=== PATIENT | male | born 1950 | race Caucasian/White ===

== ENCOUNTER 2018-07-24 06:58 | Day surgery (SDC) | payer MEDICARE, MEDICAID ==
--- NOTE | 2018-07-20 14:27 | HP ---
PREOPERATIVE HISTORY AND PHYSICAL: DATE OF ADMISSION/SURGERY: 07/24/18 [facility] DATE OF OFFICE VISIT/ENCOUNTER: 07/15/18 ATTENDING SURGEON: Ritika Garcia MD * (DICTATED BY MAIKOL JORGENSEN) PROCEDURE: Left ring trigger finger release. HISTORY OF PRESENT ILLNESS: This is a 67-year-old male, who has had trigger fingers on both hands bothering him since around the fall of 2017. The left ring finger is the worst. He has had cortisone injections in the past that have been helpful in relieving his symptoms, but the symptoms have returned. He is now interested in pursuing surgical intervention for his left ring trigger finger. PAST MEDICAL HISTORY: 1. GERD. 2. History of heart murmur. PAST SURGICAL HISTORY: 1. Right knee arthroscopy. 2. Lumbar diskectomy. 3. Right hand Dupuytren's excision. MEDICATIONS: 1. Finasteride 1 tab daily. 2. Metronidazole 0.75%, apply to face 3 times a day. 3. Ranitidine. 4. Gaviscon. 5. Viagra 100 mg, 0.5 or 1 tab p.r.n. ALLERGIES: PENICILLIN and CLINDAMYCIN cause an upset stomach. He is also allergic to bee stings. FAMILY MEDICAL HISTORY: Tuberculosis, congestive heart failure, melanoma. 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 He denies tobacco use, recreational drug use, and does not drink alcohol. REVIEW OF SYSTEMS: Negative for general, cephalic, cardiovascular, respiratory , GI, , other musculoskeletal, integumentary, endocrine, neurologic, and hematologic symptoms. Infectious Disease: Negative for MRSA, hepatitis C, HIV. PHYSICAL EXAMINATION GENERAL: A well-developed, well-nourished 67-year-old male, in no acute distress. VITAL SIGNS: Height 5 feet 7-1/2 inches, weight 191 pounds. Pulse rate 80, blood pressure 124/82. HEENT: Normocephalic, atraumatic. Pupils are equal, round, and reactive to light and accommodation. Extraocular movements are intact. Throat is clear. NECK: Supple. No palpable lymph nodes. PULMONARY: Lungs are clear to auscultation bilaterally. No wheezes, rales, or rhonchi. CARDIOVASCULAR: Regular rate and rhythm. S1, S2. Murmur detected on auscultation. No rubs or gallops. No edema. ABDOMEN: Positive bowel sounds. Soft, nontender. NEUROLOGICAL: Alert and oriented x3. Cranial nerves II through XII are intact. Sensation is intact to light touch. MUSCULOSKELETAL: On exam of his left hand, he has tenderness to palpation at the A1 robert of the ring finger. When he tries to make a fist, he cannot squeeze that finger tightly. He has good extension of the finger. Skin is intact. Neurovascular function is intact. DIAGNOSTIC STUDIES/LAB DATA: X-rays, AP, lateral, and oblique of his hand show minimal degenerative changes. IMPRESSION: Left ring finger trigger finger. PLAN: The patient is scheduled to undergo a left ring trigger finger release with Dr. Garcia on 07/24/18. He will return to the office 10 days postop for followup and suture removal. A prescription of Ultracet was e-scribed to the patient's pharmacy for postoperative pain management. MAIKOL JORGENSEN [id number]/[facility] #: [id number] BEN
[~2018-07-24 06:58] MED LIST: Buffered Lidocaine 1% SYRIN* 1 ML/SYRINGE INTRADERM ONE; Lactated Ringers 1000 ML Bag* 1,000 ML IV SCH
[2018-07-24] MEDS ORDERED: Lidocaine 1% INJ* 10 MG/ML 30 ML SDV ONE (07:06)
[2018-07-24] MEDS ORDERED: Naloxone* 0.4 MG/ML 1 ML VIAL IV PRN (08:09)
[2018-07-24] MEDS ORDERED: Midazolam* 1 MG/ML 2 ML VIAL (2 MG) ONE ×2 (08:16→08:18)
[2018-07-24] MEDS ORDERED: fentaNYL* 50 MCG/ML 2 ML VIAL (100 MCG VIAL) ONE (08:17)
[2018-07-24 09:03] VITALS: BP 124/81
--- NOTE | 2018-07-24 13:12 | OP ---
CC: Dr. Garcia* OPERATIVE NOTE: DATE OF OPERATION: 07/24/18 - [facility] DATE OF : 46 SURGEON: Ritika Garcia MD ASSISTANTS: MAIKOL Guerrero, and MAIKOL Quiroz ANESTHESIOLOGIST: Tato Waters DO ANESTHESIA: Local MAC. PRE-OP DIAGNOSIS: Left long and ring finger triggering POST-OP DIAGNOSIS: Left long and ring finger triggering OPERATIVE PROCEDURE: Left long and ring finger trigger release. ESTIMATED BLOOD LOSS: Zero. TOURNIQUET TIME: Approximately 15 minutes. INDICATIONS FOR PROCEDURE: Nilay is a 67-year-old man with triggering and locking of his left long and ring finger. He presents for trigger finger releases. DESCRIPTION OF PROCEDURE: The patient brought to the operating room, was given a sedation anesthetic and a local infiltration of 10 cc of 1% plain lidocaine in the palm of his left hand. The skin of his left hand and forearm was prepped and draped in usual sterile fashion. The hand and forearm were exsanguinated and the tourniquet elevated to 250 mmHg. A transverse incision was made and centered over the A1 pulleys of the middle and ring finger of the left hand. We dissected bluntly through the subcutaneous tissue. The digital neurovascular bundles were retracted by the certified ophthalmic surgical assistant, Katie Dykes, and the A1 pulleys of the middle and ring finger on the left hand were incised longitudinally, completely releasing the flexor tendons which were in good condition. The wound was irrigated and the skin edges reapproximated with 4-0 nylon suture. The wound was dressed with Xeroform, 4x4's, Webril and an Sunny wrap. The patient tolerated the procedure well and was brought to the recovery room in good condition. [id number]/[facility] #: [id number] MTDD
== END 2018-07-24 09:15 | disposition home or self-care (01) ==
LOC: OREAST 06:58
PROVIDERS: ATTEND Orthopaedic Surgery
DX: M65.332 Trigger finger, left middle finger (principal); M65.342 Trigger finger, left ring finger; Z88.0 Allergy status to penicillin; K21.9 Gastro-esophageal reflux disease without esophagitis; R01.1 Cardiac murmur, unspecified
CPT/HCPCS: J2250; J3010

== ENCOUNTER 2018-08-18 08:56 | Day surgery (SDC) | payer MEDICARE, MEDICAID ==
--- NOTE | 2018-08-13 15:42 | HP ---
Amended report to enter cosigning physician. PREOPERATIVE HISTORY AND PHYSICAL: DATE OF SURGERY/ADMISSION: 08/18/18 ATTENDING SURGEON: Dr. Ritika Garcia* (dictated by MAIKOL Guerrero). PROCEDURE: Right index, long, ring, and small finger trigger finger releases. HISTORY OF PRESENT ILLNESS: This is a 67-year-old male who has had trigger fingers involving his right index, long, and ring and small fingers since the fall of 2017. He has had cortisone injections in the past that had been helpful in relieving his symptoms, but the symptoms have returned. He has recently undergone trigger finger releases on his left hand and has done quite well with that. He is now interested in pursuing trigger finger releases for his right hand fingers. PAST MEDICAL HISTORY: 1. GERD. 2. History of heart murmur. PAST SURGICAL HISTORY: 1. Left ring and middle finger trigger finger releases. 2. Right knee arthroscopy. 3. Lumbar diskectomy. 4. Right hand Dupuytren's excision. CURRENT MEDICATIONS: 1. Anusol HC 2.5% apply 3 to 4 times per day. 2. Finasteride 1 tab daily. 3. Metronidazole 0.75%, apply small amount to face 3 times per day. 4. Pepcid 1 tab twice a day. 5. Viagra 100 mg 0.5 or 1 tab p.r.n. ALLERGIES: PENICILLIN and CLINDAMYCIN cause an upset stomach. He is also allergic to BEE STING. FAMILY HISTORY: Tuberculosis, congestive heart failure, melanoma. 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 He denies tobacco use and recreational drug use and does not drink alcohol. REVIEW OF SYSTEMS: Negative for general, cephalic, cardiovascular, respiratory , GI, , other musculoskeletal, integumentary, endocrine, neurologic, and hematologic symptoms. Infectious Disease: Negative for MRSA, hepatitis C, HIV. PHYSICAL EXAMINATION GENERAL: A well-developed, well-nourished, 67-year-old male, in no acute distress. VITAL SIGNS: Height 5 feet 7-1/2 inches, weight 191 pounds, pulse rate 75, blood pressure 138/84. HEENT: Normocephalic, atraumatic. Pupils are equal, round, and reactive to light and accommodation. Extraocular movements are intact. Throat is clear. NECK: Supple. No palpable lymph nodes. PULMONARY: Lungs are clear to auscultation bilaterally. No wheezes, rales, or rhonchi. CARDIOVASCULAR: Regular rate and rhythm. S1 and S2. Murmurs detected on auscultation. No rubs or gallops. No edema. ABDOMEN: Positive bowel sounds, soft, and nontender. MUSCULOSKELETAL: On exam of his right hand, he has tenderness to palpation at the A1 pulleys of the index, long, ring, and small fingers. He has trouble making a tightly squeezed fist. He has good extension of the finger. SKIN: Intact. NEUROLOGIC: Alert and oriented x3. Cranial nerves II through XII are intact. Sensation is intact to light touch. Neurovascular function is intact. IMPRESSION: Right index, long, ring, and small finger trigger fingers. PLAN: The patient is scheduled to undergo a right index, long, ring, and small finger trigger finger releases with Dr. Garcia on 08/18/18. He will return to the office 10 days postop for followup and suture removal. A prescription for Ultracet was e-scribed to the patient's pharmacy for postoperative pain management. MAIKOL GUERRERO [id number]/[facility] #: [id number] EBN
[~2018-08-18 08:56] MED LIST changes: +Famotidine IV* 10 MG/ML 2 ML (20 mg) IV ONE
[2018-08-18] MEDS ORDERED: Famotidine IV* 10 MG/ML 2 ML (20 mg) ONE (09:03)
[2018-08-18] MEDS ORDERED: fentaNYL* 50 MCG/ML 2 ML VIAL (100 MCG VIAL) ONE (09:24)
[2018-08-18] MEDS ORDERED: Midazolam* 1 MG/ML 5 ML VIAL (5 MG) ONE (09:25)
[2018-08-18] MEDS ORDERED: Lidocaine 1% INJ* 10 MG/ML 30 ML SDV ONE (09:56)
[2018-08-18] MEDS ORDERED: Propofol* 10 MG/ML 20 ML BTL ONE ×2 (10:22→11:43)
[2018-08-18] MEDS ORDERED: Ketorolac INJ* 30 MG/ML 1 ML VIAL ONE (10:22)
[2018-08-18] MEDS ORDERED: Lidocaine 2% PF * 5 ML VIAL ONE (10:22)
[2018-08-18] MEDS ORDERED: Ondansetron INJ* 2 MG/ML VIAL ONE (10:22)
[2018-08-18] MEDS ORDERED: DiMENhydriNATE IV* 50 MG/ML VIAL IV PUSH PRN (11:01)
[2018-08-18] MEDS ORDERED: HYDROcodone/ACETAMIN 5-325 MG* 1 TAB PO PRN (11:01)
[2018-08-18] MEDS ORDERED: Naloxone* 0.4 MG/ML 1 ML VIAL IV PRN (11:01)
[2018-08-18 11:15] VITALS: BP 128/86
--- NOTE | 2018-08-18 16:48 | OP ---
DATE OF OPERATION: 08/18/18 [facility] DATE OF : 46 SURGEON: Ritika Garcia MD. GAS PUMPING STATION HELPER: MAIKOL Guerrero. ANESTHESIA: Local MAC. ESTIMATED BLOOD LOSS: Zero. TOURNIQUET TIME: About 25 minutes. PRE-OP DIAGNOSIS: Trigger finger in the right index, long, ring and small fingers. POST-OP DIAGNOSIS: Trigger finger in the right index, long, ring and small fingers. OPERATIVE PROCEDURE: Trigger finger releases of right index, long, ring and small fingers. INDICATIONS: Nilay is a 67-year-old man who has locking and triggering of all the fingers on the right hand, except his thumb. He presents for trigger finger releases. DESCRIPTION OF PROCEDURE: The patient was brought to the operative room, was given a sedation anesthetic, and local infiltration of 10 cc of 1% plain lidocaine in the palm of his right hand. The skin of his right hand and forearm was prepped and draped in usual sterile fashion. The hand and forearm were exsanguinated and tourniquet elevated to 250 mmHg. A transverse incision was made centered between the A1 pulleys of the index and middle fingers and a second incision centered between the A1 pulleys of the ring and small fingers. We dissected bluntly through the subcutaneous tissue down to each finger's A1 robert and incised all the pulleys longitudinally, completely releasing the flexor tendons which were in good condition. The wounds were irrigated and the skin edges reapproximated with 4-0 nylon suture. The wounds were dressed with Xeroform, 4x4, Webril, and an Sunny wrap. The patient tolerated the procedure well and was brought to the recovery room in good condition. [id number]/[facility] #: [id number] [facility]
== END 2018-08-18 11:35 | disposition home or self-care (01) ==
LOC: OREAST 08:56
PROVIDERS: ATTEND Orthopaedic Surgery
DX: M65.321 Trigger finger, right index finger (principal); M65.331 Trigger finger, right middle finger; M65.341 Trigger finger, right ring finger; M65.351 Trigger finger, right little finger; K21.9 Gastro-esophageal reflux disease without esophagitis; R01.1 Cardiac murmur, unspecified
CPT/HCPCS: J1885; J2250; J2405; J2704; J3010